=== PATIENT | male | born 2005 | race Two or more races ===

== ENCOUNTER → 2025-07-08 | Outpatient (CLI) | payer MEDICAID, SELFPAY ==
--- NOTE | 2025-07-08 16:15 | XR_ITS ---
Examination: Abdomen sonogram, complete Date and time of exam: July 08, 2025, 1608 hours INDICATIONS: Diagnosis of hepatomegaly.. Technique: Multiple real-time grayscale transabdominal sonographic images of the abdomen have been obtained. Findings: Normal gallbladder. Normal common bile duct 0.3 cm. Pancreatic head 3.0 cm. Mid and distal aorta visualized not enlarged. Liver 16.5 cm fatty infiltration Normal hepatopedal portal venous flow. Patent IVC. Right kidney 12.0 cm cortex 2.2 cm Left kidney 12.6 cm cortex 2.1 cm Spleen 10.0 cm. IMPRESSION: Mild hepatomegaly with fatty infiltration.
== END | disposition home or self-care (01) ==
PROVIDERS: PCP Nurse Practitioner Primary Care; Referring Provider Nurse Practitioner Primary Care; Visit Provider Nurse Practitioner Primary Care
DX: K76.0 Fatty (change of) liver, not elsewhere classified (principal)
CPT/HCPCS: 76700